=== PATIENT | female | born 1965 | race Caucasian/White ===

== ENCOUNTER 2016-03-09 10:23 | Emergency (ER) | payer MEDICAID ==
[2016-03-09 10:41] VITALS: BP 126/73
[2016-03-09] MEDS ORDERED: methylPREDNISolone Sodium Succinate 125 MG/2 ML SDV IM ONE (10:47)
--- NOTE | 2016-03-09 10:53 | EDM.PDOC ---
ED HPI Skin/Rash - General Chief Complaint: Skin Complaint Stated Complaint: RASH Time Seen by Provider: 03/09/16 10:28 Source: Reports: Patient History Limitations: Reports: No limitations - History of Present Illness INITIAL COMMENTS - FREE TEXT/NARRATIVE: The patient started noticing a rash on her abdomen on . She denies having you can contact with any soaps that may have scents. She states that and he started going to her back and onto her chest as well as her upper arms. She was concerned about shingles but I did reassure her that I don't believe that they are shingles. They were itching originally but then a started decreasing with the intensity of itching. She has not tried any antihistamines. I did give her a shot of Solu-Medrol which should help. She does have some Zyrtec at home that may be beneficial as it won't be sedating. No signs of cellulitis. Patient has no problem with breathing. She also has not had a known exposure to anyone else that has had any rash in the past. The patient has been going through some hot flashes and so she's not sure if she has had a lot of issues with any kind of infection or if it's a hot flash. The patient otherwise has very good habitus and she recovers quickly. Cavity about the amount of rash that she has on her and how she should try something that is systemic as far as antihistamines and steroids. She does not have a regular doctor. Timing: Reports: still present Location, Skin: Reports: neck, chest, abdomen, back, generalized Quality: Reports: Ache, Itching (some) Severity: moderate Known Identified Source: no When: prior to symptom onset Place of Occurrence: home Sick Contact: no Associated Symptoms: Denies: shortness of breath, syncope, weakness, chest pain , cough, sputum, diaphoresis, malaise, loss of appetite Similar Symptoms Previously: no Recent Medical Care: no - Related Data Allergies Allergy/AdvReac Type Severity Reaction Status Date / Time No Known Allergies Allergy Verified 03/09/16 10:38 Home Meds: Ambulatory Orders Medication Instructions Recorded Confirmed . [No Known Home Meds] 07/12/15 03/09/16 Past Medical History - Past Health History Medical/Surgical History: Denies Medical/Surgical History - Past Surgical History Musculoskeletal Surgical History: Reports: Other (see below) Other Musculoskeletal Surgeries/Procedures:: ACL knee surgery Social & Family History - Tobacco Use Smoking Status *Q: Unknown Ever Smoked ED ROS GENERAL - Review of Systems Review Of Systems: See Below Constitutional: Reports: no symptoms HEENT: Reports: No symptoms Respiratory: Reports: no symptoms Cardiovascular: Reports: No symptoms Endocrine: Reports: no symptoms GI/Abdominal: Reports: No symptoms Skin: Reports: rash, lesions Psychiatric: Reports: No symptoms ED EXAM, SKIN/RASH Exam: See Below Exam Limited By: No limitations General Appearance: alert, mild distress Eye Exam: bilateral eye: EOMI Respiratory/Chest: no respiratory distress, lungs clear, normal breath sounds, no accessory muscle use, chest non-tender Cardiovascular: normal peripheral pulses, regular rate, rhythm, no murmur Skin: Other (Patient does have lesions about her abdomen and it does cross more than one dermatome. It also crosses the spine. They are not crusted. No signs of infection per se. This generalized rash is about her abdomen and back chest upper arms and a little bit into her neck on the right side. No discharge.) Characteristics: maculopapular, patchy. No: linear, vesicular, erythematous, necrotic Associated features: No: warmth, tenderness, swelling, induration, scaling, inflammation, crusting, weeping, rough Course - Vital Signs Last Recorded V/S: Last Vital Signs Temp 35.9 C 03/09/16 10:35 Pulse 76 03/09/16 10:35 Resp 14 03/09/16 10:35 BP 126/73 03/09/16 10:35 Pulse Ox 97 03/09/16 10:35 - Orders/Labs/Meds Meds: Medications Discontinued Medications Generic Name Dose Route Start Last Admin Trade Name Sandra PRN Reason Stop Dose Admin Methylprednisolone Sodium Succinate 125 mg 03/09/16 10:47 03/09/16 10:58 Solu-Medrol IM 03/09/16 10:48 125 mg ONETIME ONE Administration Departure - Departure Time of Disposition: 10:48 Disposition: Home, Self-Care 01 Condition: good Clinical Impression: Atopic dermatitis Qualifiers: Atopic dermatitis type: unspecified Qualified Code(s): L20.9 - Atopic dermatitis, unspecified Instructions: Rash Referrals: PCP,None [Primary Care Provider] - Forms: ED Department Discharge Additional Instructions: Use claritin during the day or Benadryl 25-50mg every 6 hours. You received Solumedrol which is a steroid. Return if needed. Avoid itching the lesions. Benadryl ointment may also be beneficial.
== END 2016-03-09 11:16 | disposition home or self-care (01) ==
LOC: VM.ED 10:23
DX: L20.9 Atopic dermatitis, unspecified (principal)
CPT/HCPCS: 96372; 99283; J2930

== ENCOUNTER 2016-07-06 20:49 | Emergency (ER) | payer MEDICAID ==
[2016-07-06 21:05] VITALS: BP 145/94
--- NOTE | 2016-07-06 21:05 | EDM.PDOC ---
ED HPI Skin/Rash - General Chief Complaint: Laceration Stated Complaint: Laceration to 3rd digit left hand Time Seen by Provider: 07/06/16 21:00 Source: Reports: Patient, RN, RN notes reviewed History Limitations: Reports: No limitations - History of Present Illness INITIAL COMMENTS - FREE TEXT/NARRATIVE: Patient presents to the ED at [facility] after she sustained a laceration to the medial side of the 3rd digit left hand. Patient states she was trying to remove a bold from a piece of farm equipment. The bold slipped and lacerated her finger. No previous injury or trauma. No previous surgeries. Patient denies any numbness, tingling, or paresthesia to the affected extremity. Symptom Onset Date: 07/06/16 Symptom Onset Time: 20:20 Timing: Reports: still present Location, Skin: Reports: upper extremity, left Quality: Reports: Stabbing Severity: moderate Known Identified Source: yes Place of Occurrence: home Associated Symptoms: Reports: no other symptoms - Related Data Allergies Allergy/AdvReac Type Severity Reaction Status Date / Time No Known Allergies Allergy Verified 07/06/16 21:02 Home Meds: Ambulatory Orders Medication Instructions Recorded Confirmed . [No Known Home Meds] 07/12/15 03/09/16 Past Medical History - Past Health History Medical/Surgical History: Denies Medical/Surgical History - Past Surgical History Musculoskeletal Surgical History: Reports: Other (see below) Other Musculoskeletal Surgeries/Procedures:: ACL knee surgery Social & Family History - Tobacco Use Smoking Status *Q: Unknown Ever Smoked ED ROS GENERAL - Review of Systems Review Of Systems: See Below Constitutional: Denies: fever, chills, weakness Respiratory: Denies: Shortness of Breath, Cough Cardiovascular: Denies: Chest pain, Palpitations Skin: Reports: wound (laceration to finger) Neurological: Reports: No Symptoms ED EXAM, SKIN/RASH Exam: See Below Exam Limited By: No limitations General Appearance: alert, no apparent distress Respiratory/Chest: no respiratory distress, lungs clear, normal breath sounds Cardiovascular: regular rate, rhythm Peripheral Pulses: 2+: radial (L), radial (R) Extremities: normal capillary refill Skin: Warm, Dry, Normal color, No rash, Wound/incision Location, Skin: upper extremity, left Characteristics: other (laceration to medial side of 3rd digit left hand) Associated features: tenderness, swelling ED SKIN PROCEDURES - Laceration/Wound Repair Middle Finger Lac/wound length in cm: 1.7 Appearance: subcutaneous, mildly contaminated Distal NVT: neuro & vascular intact, no tendon injury Anesthetic type: local Local anesthesia - Lidocaine (Xylocaine): 1% plain Skin prep: chlorhexidine (hibiciens) Exploration/Debridement/Repair: wound explored, in a bloodless field, explored to base, no foreign material found, wound margins revised Closed with: sutures Suture type: nylon, interrupted, simple Sterile dressing applied: nurse Tetanus status addressed: Yes Complications: No Course - Vital Signs Last Recorded V/S: Last Vital Signs Temp 36.7 C 07/06/16 21:03 Pulse 79 07/06/16 21:03 Resp 20 07/06/16 21:03 BP 145/94 H 07/06/16 21:03 Pulse Ox 97 07/06/16 21:03 - Orders/Labs/Meds Meds: Medications Discontinued Medications Generic Name Dose Route Start Last Admin Trade Name Freq PRN Reason Stop Dose Admin Lidocaine HCl 5 ml 07/06/16 21:00 07/06/16 21:08 Xylocaine-Mpf 1% INJECT 07/06/16 21:01 5 ml ONETIME ONE Administration Departure - Departure Time of Disposition: 21:44 Disposition: Home, Self-Care 01 Condition: good Clinical Impression: Finger laceration Qualifiers: Encounter type: initial encounter Qualified Code(s): S61.219A - Laceration without foreign body of unspecified finger without damage to nail, initial encounter Instructions: Laceration Care, Adult, Sutured Wound Care Forms: ED Department Discharge Additional Instructions: 1. Stay well hydrated and rest 2. Sutures stay in for 10 days 3. May use Tylenol/Advil as needed 4. Keep bandage on for 24 hours 5. Keep finger clean and dry - Problem List Review Problem List Initiated/Reviewed/Updated: Yes
== END 2016-07-06 21:55 | disposition home or self-care (01) ==
LOC: VM.ED 20:49
DX: S61.213A Laceration without foreign body of left middle finger without damage to nail, initial encounter (principal); W30.9XXA Contact with unspecified agricultural machinery, initial encounter
CPT/HCPCS: 12001; 99283